=== PATIENT | female | born 1965 | race Caucasian/White ===

== ENCOUNTER 2019-08-24 01:33 | Inpatient (IN) | payer MEDICARE, MEDICAID ==
[~2019-08-24] VITALS: Ht 165.1 cm; Wt 79.0 kg
[2019-08-24] MEDS ORDERED: NOREPINEPHRINE 8 MG in SODIUM CHLORIDE 0.9% 242 ML IV PRN ×2 (02:00→03:30)
--- NOTE | 2019-08-24 02:21 | NUR ---
PT A/O X4 SPEAKING FULL SENTENCES, PT TRANSPORTED FROM [facility] FOR POSSIBLE SEPSIS FOR PT WHO WAS TRANSPORTED EARLIER IN THE DAY FOR HYPOGLYCEMIA OF 44.
[2019-08-24 02:41] LABS: TROPONIN I < 0.015 ng/mL (0.000-0.045)
[2019-08-24] MEDS ORDERED: METO25TA35 PO (02:54)
[2019-08-24] MEDS ORDERED: CLOP75TA52 PO (02:54)
[2019-08-24] MEDS ORDERED: INSU100C SQ-INSULIN (02:54)
[2019-08-24] MEDS ORDERED: INSU100V13 SC (02:54)
[2019-08-24] MEDS ORDERED: LISI-167 PO (02:54)
[2019-08-24] MEDS ORDERED: ACETAMINOPHEN 325 MG TABLET PO PRN (03:00)
[2019-08-24] MEDS ORDERED: ONDANSETRON ODT 4 MG PO PRN (03:00)
[2019-08-24] MEDS ORDERED: LEVO25TA4 PO (03:04)
[2019-08-24] MEDS ORDERED: EZET10TA70 PO (03:06)
[2019-08-24] MEDS ORDERED: CA C1TAB60 PO (03:06)
[2019-08-24] MEDS ORDERED: PRAS1TAB3 PO (03:08)
[2019-08-24] MEDS ORDERED: ASPI-496 PO (03:08)
[2019-08-24] MEDS ORDERED: SIMV20TA19 PO (03:09)
--- NOTE | 2019-08-24 03:16 | NUR ---
SPECIAL INVESTIGATOR STOPPED PT'S NOREPINEPHRINE TO SEE IF PT B/P WOULD MAINTAIN BY HERSELF. PT B/P DROPPED TO 95/51 FROM 127/70 WITHIN 10 MIN. PT'S NOREPINEPHRINE WAS RESTARTED WITH PT B/P AT 136/70 AFTER MEDICATION RESTART.
[2019-08-24 07:05] LABS: TROPONIN I < 0.015 ng/mL (0.000-0.045)
[2019-08-24] MEDS: SODIUM CHLORIDE 0.9% 1,000 ML IV SCH ×2 (08:13→17:36)
[2019-08-24 20:00] VITALS: BP 109/64
[2019-08-25 00:33] VITALS: BP 98/62
[2019-08-25 05:48] LABS: BASOPHILS # (AUTO) 0.05 x10^3/uL (0-0.1); BASOPHILS % (AUTO) 0 % (0-1); EOSINOPHILS # (AUTO) 0.18 x10^3/uL (0-0.4); EOSINOPHILS % (AUTO) 2 % (1-7); LYMPHOCYTES # (AUTO) 4.13 x10^3/uL (1-3.4); LYMPHOCYTES % (AUTO) 36 % (22-44); MD NO; MEAN CORPUSCULAR HEMOGLOBIN 35.4 pg (27.0-34.8); MEAN CORPUSCULAR HGB CONC 33.3 g/dL (32.4-35.8); MEAN CORPUSCULAR VOLUME 106.5 fL (80-100); MEAN PLATELET VOLUME 9.4 fL (7.4-10.4); MONOCYTES # (AUTO) 0.63 x10^3/uL (0.2-0.8); MONOCYTES % (AUTO) 6 % (2-9); NEUTROPHILS # (AUTO) 6.36 x10^3/uL (1.8-6.8); NEUTROPHILS % (AUTO) 56 % (42-75); PLATELET COUNT 180 x10^3/uL (130-400); RED BLOOD COUNT 2.86 x10^6/uL (3.82-5.3); RED CELL DISTRIBUTION WIDTH 13.6 % (9.6-15.2)
[2019-08-25 05:56] LABS: CHLORIDE 113 mmol/L (98-107)
[2019-08-25 06:01] LABS: ANION GAP 5 mmol/L (5-15); CALCIUM 8.3 mg/dL (8.5-10.1); CREATININE 2.07 mg/dL (0.55-1.02)
[2019-08-25 07:45] VITALS: BP 104/64
[2019-08-25] MEDS: SODIUM CHLORIDE 0.9% 1,000 ML IV SCH ×2 (09:43→17:46)
[2019-08-25 11:06] LABS: CULTURE INDICATED? NO; MICROSCOPIC NOT IND
[2019-08-25] MEDS ORDERED: DEXTROSE 4 GM TAB.CHEW PO PRN (12:30)
[2019-08-25] MEDS ORDERED: DEXTROSE 50%, 50ML SYRINGE IVPush PRN (12:30)
[2019-08-25] MEDS: INSULIN LISPRO 100 UNITS/ML, PEN SQ-INSULIN SCH ×3 (12:30→20:00)
[2019-08-25] MEDS ORDERED: GLUCAGON 1 MG IM PRN (12:30)
[2019-08-25 13:25] LABS: RAPID INFLUENZA A Negative (Negative); RAPID INFLUENZA B Negative (Negative)
[2019-08-25 15:46] VITALS: BP 103/66
[2019-08-25 19:02] VITALS: BP 113/66
[2019-08-25] MEDS: SODIUM CHLORIDE FLUSH 10ML SYR IVF SCH (20:00)
[2019-08-25] MEDS ORDERED: LEVOTHYROXINE 25 MCG TABLET PO SCH (21:00)
[2019-08-26 01:38] VITALS: BP 111/63
[2019-08-26] MEDS: SODIUM CHLORIDE 0.9% 1,000 ML IV SCH ×2 (04:02→13:25)
[2019-08-26 05:43] LABS: BASOPHILS # (AUTO) 0.03 x10^3/uL (0-0.1); BASOPHILS % (AUTO) 0 % (0-1); EOSINOPHILS # (AUTO) 0.26 x10^3/uL (0-0.4); EOSINOPHILS % (AUTO) 3 % (1-7); LYMPHOCYTES % (AUTO) 37 % (22-44); MD NO; MEAN CORPUSCULAR HEMOGLOBIN 34.9 pg (27.0-34.8); MEAN CORPUSCULAR HGB CONC 32.8 g/dL (32.4-35.8); MEAN CORPUSCULAR VOLUME 106.3 fL (80-100); MEAN PLATELET VOLUME 9.2 fL (7.4-10.4); MONOCYTES % (AUTO) 5 % (2-9); NEUTROPHILS # (AUTO) 5.39 x10^3/uL (1.8-6.8); NEUTROPHILS % (AUTO) 55 % (42-75); PLATELET COUNT 159 x10^3/uL (130-400); RED CELL DISTRIBUTION WIDTH 13.6 % (9.6-15.2)
[2019-08-26 05:54] LABS: ANION GAP 8 mmol/L (5-15); CALCIUM 8.1 mg/dL (8.5-10.1); CHLORIDE 111 mmol/L (98-107); CREATININE 1.63 mg/dL (0.55-1.02)
[2019-08-26] MEDS: SODIUM CHLORIDE FLUSH 10ML SYR IVF SCH (08:22)
[2019-08-26] MEDS: INSULIN LISPRO 100 UNITS/ML, PEN SQ-INSULIN SCH ×3 (08:22→16:00)
[2019-08-26 08:28] VITALS: BP 115/73
[2019-08-26 12:55] VITALS: BP 119/76
[2019-08-26] MEDS ORDERED: INSULIN GLARGINE 100 UNITS/ML, PEN SQ-INSULIN ONE (13:00)
[2019-08-26 15:27] LABS: ANION GAP 7 mmol/L (5-15); CALCIUM 8.4 mg/dL (8.5-10.1); CHLORIDE 112 mmol/L (98-107); CREATININE 1.53 mg/dL (0.55-1.02)
== END 2019-08-26 16:25 | disposition home or self-care (01) | DRG 314 ==
LOC: ED 02:45 → EDIP 02:53 → CCU 03:55 → 3N 08-25 00:20
PROVIDERS: ADMIT Family Medicine; ATTEND Internal Medicine
DX: I95.89 Other hypotension (principal); R57.0 Cardiogenic shock; N17.9 Acute kidney failure, unspecified; E78.5 Hyperlipidemia, unspecified; N18.9 Chronic kidney disease, unspecified; Z88.0 Allergy status to penicillin; Z88.8 Allergy status to other drugs, medicaments and biological substances; E11.65 Type 2 diabetes mellitus with hyperglycemia; E03.9 Hypothyroidism, unspecified; I12.9 Hypertensive chronic kidney disease with stage 1 through stage 4 chronic kidney disease, or unspecified chronic kidney disease; E11.22 Type 2 diabetes mellitus with diabetic chronic kidney disease; E87.5 Hyperkalemia; G89.4 Chronic pain syndrome; I25.10 Atherosclerotic heart disease of native coronary artery without angina pectoris; I25.2 Old myocardial infarction; Z95.5 Presence of coronary angioplasty implant and graft; Z96.41 Presence of insulin pump (external) (internal); Z79.4 Long term (current) use of insulin
CPT/HCPCS: 36415; 71045; 80048; 81003; 82962; 84132; 84484; 85025; 87081; 87400; 93005; 93306; 96365; G0378; J1815; J7030; J7050